=== PATIENT | female | born 1950 | race Caucasian/White ===

== ENCOUNTER → 2019-12-08 | Outpatient (CLI) | payer MEDICARE, OTHER ==
[~2019-12-08] MED LIST: DIVA500T2 PO; HERBAL SUPPLEMENTS PO; LEVO50TA5 PO; LEVO75TA PO; TAMS-11 PO
[2019-12-08 10:30] LABS: BASOPHILS # (AUTO) 0.06 x10^3/uL (0-0.1); BASOPHILS % (AUTO) 1 % (0-1); EOSINOPHILS # (AUTO) 0.06 x10^3/uL (0-0.4); EOSINOPHILS % (AUTO) 1 % (1-7); LYMPHOCYTES # (AUTO) 4.49 x10^3/uL (1-3.4); LYMPHOCYTES % (AUTO) 47 % (22-44); MD NO; MEAN CORPUSCULAR HEMOGLOBIN 34.2 pg (27.0-34.8); MEAN CORPUSCULAR HGB CONC 33.6 g/dL (32.4-35.8); MEAN CORPUSCULAR VOLUME 101.8 fL (80-100); MEAN PLATELET VOLUME 9.1 fL (7.4-10.4); MONOCYTES # (AUTO) 0.86 x10^3/uL (0.2-0.8); MONOCYTES % (AUTO) 9 % (2-9); NEUTROPHILS # (AUTO) 4.16 x10^3/uL (1.8-6.8); NEUTROPHILS % (AUTO) 43 % (42-75); PLATELET COUNT 214 x10^3/uL (130-400); RED BLOOD COUNT 3.89 x10^6/uL (3.82-5.3); RED CELL DISTRIBUTION WIDTH 14.7 % (9.6-15.2)
[2019-12-08 10:39] LABS: INTERNATIONAL NORMALIZED RATIO 0.95 (0.93-1.1); PROTHROMBIN TIME 10.1 Seconds (9.6-11.5)
[2019-12-08 10:41] LABS: ALANINE AMINOTRANSFERASE 16 U/L (12-78); ALBUMIN 2.9 g/dL (3.4-5.0); ANION GAP 3 mmol/L (5-15); CALCIUM 8.2 mg/dL (8.5-10.1); CHLORIDE 109 mmol/L (98-107); CREATININE 0.52 mg/dL (0.55-1.02)
[2019-12-08 10:43] LABS: ALKALINE PHOSPHATASE 55 U/L (45-117); BILIRUBIN,TOTAL 0.9 mg/dL (0.2-1.0)
== END | disposition home or self-care (01) ==
LOC: STAR 09:27
PROVIDERS: ATTEND Dermatology Procedural Dermatology
DX: Z01.818 Encounter for other preprocedural examination (principal); R87.612 Low grade squamous intraepithelial lesion on cytologic smear of cervix (LGSIL); N88.2 Stricture and stenosis of cervix uteri; B97.7 Papillomavirus as the cause of diseases classified elsewhere
CPT/HCPCS: 36415; 71046; 80053; 85025; 85610; 85730; 93005

== ENCOUNTER 2019-12-19 08:46 | Day surgery (SDC) | payer MEDICARE, OTHER ==
[~2019-12-19] VITALS: Ht 162.6 cm; Wt 56.9 kg
[2019-12-19] MEDS ORDERED: LACTATED RINGERS 1,000 ML IV SCH (09:27)
[2019-12-19 09:30] VITALS: BP 139/96
[2019-12-19] MEDS ORDERED: SCOPOLAMINE PATCH, 1.5MG PATCH.TD72 TD ONE ×2 (09:30→10:00)
[2019-12-19] MEDS ORDERED: GABAPENTIN 300 MG CAPSULE PO ONE (09:30)
[2019-12-19] MEDS ORDERED: LIDOCAINE-MPF 1%, 2ML INFIL ONE (09:30)
[2019-12-19] MEDS ORDERED: CEFOTETAN PMX 2GM/50ML 50 ML IV ONE (10:00)
[2019-12-19] MEDS ORDERED: ACETAMINOPHEN 500 MG TABLET PO ONE (10:00)
[2019-12-19] MEDS ORDERED: MIDAZOLAM 1 MG/ML, 2ML ONE (10:22)
[2019-12-19] MEDS ORDERED: FENTANYL PF 250 MCG/5ML ONE (10:22)
[2019-12-19] MEDS ORDERED: BUPIVACAINE/PF-EPI 0.25% 1:200K ONE (10:59)
[2019-12-19] MEDS ORDERED: CEFAZOLIN 1,000 MG ONE (12:59)
[2019-12-19] MEDS ORDERED: PROPOFOL 10 MG/ML, 20ML ONE (12:59)
[2019-12-19] MEDS ORDERED: SUCCINYLCHOLINE 20 MG/ML, 10ML ONE (12:59)
[2019-12-19] MEDS ORDERED: DEXAMETHASONE 4 MG/ML, 1ML ONE (12:59)
[2019-12-19] MEDS ORDERED: ROCURONIUM 10MG/ML,5ML ONE (12:59)
[2019-12-19] MEDS ORDERED: NEOSTIGMINE 1 MG/ML, 10ML ONE (12:59)
[2019-12-19] MEDS ORDERED: GLYCOPYRROLATE 0.2MG/1ML, 5ML ONE (12:59)
[2019-12-19] MEDS ORDERED: ONDANSETRON 2MG/ML, 2ML ONE (12:59)
[2019-12-19] MEDS ORDERED: FENTANYL PF 100 MCG/2ML ONE (13:02)
[2019-12-19] MEDS ORDERED: ONDA4TAB7 PO (13:19)
[2019-12-19] MEDS ORDERED: OXYC-306 PO (13:19)
[2019-12-19] MEDS ORDERED: OXYcodone 5 MG/5 ML ORAL.SOL UDC ONE (13:28)
[2019-12-19] MEDS ORDERED: MEPERIDINE/PF 25MG/ML,1ML ONE (13:28)
[2019-12-19] MEDS ORDERED: hydrALAzine 20 MG/ML, 1ML IV PRN (14:00)
[2019-12-19] MEDS ORDERED: OXYcodone 5 MG/5 ML ORAL.SOL UDC PO PRN (14:00)
[2019-12-19] MEDS ORDERED: LABETALOL 5MG/ML, 20ML IV PRN (14:00)
[2019-12-19] MEDS ORDERED: MEPERIDINE/PF 25MG/ML,1ML IVPush PRN (14:00)
[2019-12-19] MEDS ORDERED: FENTANYL PF 100 MCG/2ML IV PRN (14:00)
[2019-12-19] MEDS ORDERED: HYDROmorphone 2 MG/ML, 1ML IVPush PRN (14:00)
[2019-12-19] MEDS ORDERED: HALOPERIDOL 5 MG/ML IV PRN (14:00)
[2019-12-19] MEDS ORDERED: PROMETHAZINE 25 MG/ML, 1ML IV PRN (14:00)
== END 2019-12-19 18:30 | disposition home or self-care (01) ==
LOC: OR 08:46 → OUT 18:30
PROVIDERS: ATTEND Obstetrics & Gynecology
DX: N88.2 Stricture and stenosis of cervix uteri (principal); R87.612 Low grade squamous intraepithelial lesion on cytologic smear of cervix (LGSIL); N83.292 Other ovarian cyst, left side; N83.291 Other ovarian cyst, right side; B97.7 Papillomavirus as the cause of diseases classified elsewhere; I10 Essential (primary) hypertension; E03.9 Hypothyroidism, unspecified; N20.0 Calculus of kidney; G40.509 Epileptic seizures related to external causes, not intractable, without status epilepticus; Z98.890 Other specified postprocedural states
CPT/HCPCS: 36415; 58552; 86850; 86900; 86923; 88307; J0330; J1100; J2175; J2250; J2405; J2704; J2710; J3010; J3490; J7120; J0690